=== PATIENT | female | born 1940 | race African-American/Black ===

== ENCOUNTER 2016-11-02 08:45 | Emergency (ER) | payer OTHER, MEDICARE ==
[~2016-11-02] VITALS: Ht 162.6 cm; Wt 81.6 kg
[2016-11-02 09:00] VITALS: BP 144/81
--- NOTE | 2016-11-02 10:06 | ED GENERAL ADULT ---
History of Present Illness General Chief Complaint: Foot or Ankle Injury Stated Complaint: NEEDS TOE NAIL REMOVED Source: patient Exam Limitations: no limitations Vital Signs & Intake/Output Vital Signs & Intake/Output Vital Signs Date Time Temp Pulse Resp B/P B/P Pulse O2 O2 Flow FiO2 Mean Ox Delivery Rate 11/02 0900 97.1 80 18 144/81 97 Room Air Allergies Coded Allergies: No Known Allergies (11/02/16) Triage Note: ACCIDENTALLY STEPPED ON "SOMETHING" SHARP AND IS NOW EXPERIENCING LEFT FOOT PAIN. DOES NOT RECALL WHEN SHE LAST HAD A TETANUS SHOT. Triage Nurses Notes Reviewed? yes HPI: Ms. Bardales is a 76 year old female with past medical history significant for hypertension, hyperlipidemia who presented to ED with chief complaint of penetrating wound yesterday. Patient reported that she was walking bare feet in the house yard, small metal piece penterate the lateral aspect of left dorsum foot. Patient was able to take off some of the pieces, denied any bleeding, discharge, numbness, weakness. Patient denied any pain, difficulty walking. Reported tenderness on palpation. Patient denied having tetanus shot for the last 5 years. Denied history of diabetes. Patient was instructed by her daughter is a nurse to come to ED for tetanus shut. Patient denied any chest pain, shortness of breath, joint pain, muscle pain or muscle spasm. (МАРИЯ DOUGLASS,[facility]) Past History Travel History Traveled to [place] past 21 day No Medical History Any Pertinent Medical History? see below for history Cardiovascular: hypertension, hyperlipidemia Tetanus Vaccine: 11/02/16 Surgical History Surgical History: non-contributory Psychosocial History What is your primary language [place] Tobacco Use: Never used Family History Hx Contributory? No (МАРИЯ DOUGLASS,[facility]) Review of Systems Review of Systems Constitutional: Denies: chills, fever, weakness. EENTM: Denies: blurred vision, nasal congestion. Respiratory: Denies: cough, short of breath. Cardiovascular: Denies: chest pain, palpitations. GI: Denies: abdominal pain, constipation, nausea, vomiting. Genitourinary: Denies: dysuria. Musculoskeletal: Denies: joint pain, joint swelling, muscle pain. Skin: Denies: rash. Neurological/Psychological: Denies: cognitive dysfunction. Hematologic/Endocrine: Denies: bleeding. (МАРИЯ DOUGLASS,[facility]) Review of Systems Immunologic/Allergic: Reports: no symptoms. All Other Systems: Reviewed and Negative (ALBER WOODS MD) Physical Exam Physical Exam General Appearance: well developed/nourished, no apparent distress, alert, awake Head: atraumatic, normal appearance Eyes: Bilateral: normal appearance, PERRL, EOMI. Ears, Nose, Throat: normal pharynx, normal ENT inspection Neck: normal inspection, supple, full range of motion Respiratory: normal breath sounds, chest non-tender, no respiratory distress Cardiovascular: regular rate/rhythm Gastrointestinal: normal bowel sounds, soft, non-tender Extremities: normal inspection, normal capillary refill, normal range of motion, no edema, left foot lateral dorsal surface has a small 0.5 x0.5 pentrating wound with black discoloration, no erythema, no warmness, tender to touch, no flactuation or crepitation . no bleeding or discharge. Normal sensation and motor function Normal gait Neurologic/Psych: no motor/sensory deficits, awake, alert, oriented x 3 Core Measures ACS in differential dx? No CVA/TIA Diagnosis: No Severe Sepsis Present: No Septic Shock Present: No (МАРИЯ DOUGLASS,MARIBEL) Physical Exam Peripheral Pulses: 4+ carotid (R), 4+ carotid (L) Back: normal inspection, normal range of motion Reflexes: 2+: bicep (R), bicep (L). Skin: normal color, warm/dry, lateral plantar surface of L foot distal 5th MT with abrasion and tenderness Lymphatic: no anterior cervical yoni (ALBER WOODS MD) Progress Differential Diagnoses I considered the following diagnoses in my evaluation of the patient: [ Penetrating wound, cellulitis, abscess, necrotizing fasciitis] Plan of Care: xr, tdDiagnostic Imaging: Viewed by Me: Radiology Read. Radiology Impression: no acute abnormality, no fracture, no dislocation, no foreign body seen Initial ED EKG: none (MARIBEL HSIEH MD) Differential Diagnoses I considered the following diagnoses in my evaluation of the patient: Plan of Care: xr, td (ALBER WOODS MD) Departure Departure Disposition: HOME OR SELF CARE Condition: Stable Clinical Impression Primary Impression: Penetrating wound of left foot Referrals: FILI DOUGLASS,YVETTE Portillo (PCP/Family) Departure Forms: Customer Survey General Discharge Information Comments -Patient was given tetanus shut. -X-ray of left foot was ordered to rule out any foreign body/abscess formation. X-ray reveled no radiopaque foreign body is identified along the lateral aspect of the forefoot, at the level of the 5th MTP joint. -Patient was reevaluated, x-ray finding was discussed. Denied any pain. Patient is stable to be discharged home after cleaning and bandaging the wound. (МАРИЯ DOUGLASS,[facility]) Resident Co-Sign Statement Statement: ED Attending supervision documentation- x I saw and evaluated the patient. I have also reviewed all the pertinent lab results and diagnostic results. I agree with the findings and the plan of care as documented in the Resident's documentation. [] I have reviewed the ED Record and agree with the Resident's documentation. [] Additions or exceptions (if any) to the Resident's note and plan are summarized below: [] (ALBER WOODS MD) Critical Care Note Critical Care Note Critical Care Time: non-applicable (ALBER WOODS MD)
--- NOTE | 2016-11-02 10:51 | RADIOLOGY REPORT ---
EXAMINATION: XR FOOT, LEFT CLINICAL INFORMATION: Rule out foreign object. Stepped on nail. COMPARISON: None TECHNIQUE: AP, lateral, and oblique views of the left foot. FINDINGS: Soft tissue marker positioned along the lateral aspect of the foot at the level of the 5th MTP joint. No definite radiopaque foreign body is identified in this region. No acute fracture is seen. Small densities along the medial aspect of the 5th MTP joint, may reflect small ossicles or dystrophic changes. There is spurring from the proximal 5th metatarsal base. Ossicles adjacent to the cuboid. Tarsometatarsal alignment is within normal limits. Prominent Achilles tendon and plantar fascia insertion. 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 Anterior spurring of the distal tibia. IMPRESSION: No radiopaque foreign body is identified along the lateral aspect of the forefoot, at the level of the 5th MTP joint.
== END 2016-11-02 11:29 ==
LOC: ERH 08:45
DX: S91.332A Puncture wound without foreign body, left foot, initial encounter (principal); W45.8XXA Other foreign body or object entering through skin, initial encounter; Y92.9 Unspecified place or not applicable; Y93.9 Activity, unspecified
CPT/HCPCS: 73630-LT; 90471